=== PATIENT | male | born 1955 | race Caucasian/White ===

== ENCOUNTER 2021-08-01 17:21 | Observation (INO) | payer OTHER ==
[2021-08-01 18:22] LABS: Absolute Lymphocytes (CBC) 1.6 K/uL (0.7-4.9); Hematocrit 42.7 % (39.6-49.0); MPV 8.4 fL (7.6-11.3); RBC Red Blood Cell Count 4.81 M/uL (4.33-5.43)
--- NOTE | 2021-08-01 18:28 | RAD REPORT ---
EXAM DESCRIPTION: CT - Ct Stroke Brain Wo Cont - 08/01/2021 6:18 pm CLINICAL HISTORY: Sided weakness ;Confused COMPARISON: <Comparisons> TECHNIQUE: All CT scans are performed using dose optimization technique as appropriate and may inclu de automated exposure control or mA/KV adjustment according to patient size. FINDINGS: No intracranial hemorrhage, hydrocephalus or extra-axial fluid collection.Mild chronic sma ll vessel ischemic changes. The paranasal sinuses and mastoids are clear. The calvarium is intact. IMPRESSION: No acute intracranial abnormality. Discussed with Dr. Ceja by Dr. Sanchez at 1824 on 08/01/21
[2021-08-01] MEDS ORDERED: FAMOTIDINE 20 MG/2 ML VIAL IV ONE ×2 (18:44→18:52)
[2021-08-01] MEDS ORDERED: NA CHLORIDE 0.9% 0 ML ONE (18:44)
[2021-08-01 18:45] LABS: Urine Blood Negative (Negative); Urine Glucose Negative (Negative); Urine Protein Negative (Negative); Urine Specific Gravity 1.015 (1.005-1.030)
--- NOTE | 2021-08-01 18:48 | RAD REPORT ---
EXAM DESCRIPTION: RAD - Chest Single View - 08/01/2021 6:26 pm CLINICAL HISTORY: Possible CVA COMPARISON: No comparisonsNo comparisons FINDINGS: Lines: None. Lungs: No evidence of edema or pneumonia. Pleural: No significant pleural effusions or pneumothorax. Cardiac: The heart size is within normal limits. Bones: No acute fractures. Other: IMPRESSION: No acute cardiopulmonary disease.
[2021-08-01] MEDS ORDERED: NA CHLORIDE 0.9% 500 ML ONE (18:51)
[2021-08-01 19:13] LABS: Barbiturates NEGATIVE (NEGATIVE); Benzodiazepines NEGATIVE (NEGATIVE); Cocaine NEGATIVE (NEGATIVE); METHAMPHETAM NEGATIVE (NEGATIVE); Methadone NEGATIVE (NEGATIVE); Opiates NEGATIVE (NEGATIVE); Phencyclidine NEGATIVE (NEGATIVE); THC Cannibis NEGATIVE (NEGATIVE)
[2021-08-01 19:15] LABS: SARS-COV-2 RT PCR NEGATIVE (NEGATIVE)
[2021-08-01 19:19] LABS: Protime INR 1.02
[2021-08-01] MEDS ORDERED: NA CHLORIDE 0.9% 50 ML ONE (19:22)
[2021-08-01] MEDS ORDERED: ASPIRIN 81 MG CHEWABLE TABLET ONE (19:22)
[2021-08-01] MEDS ORDERED: FOLIC ACID 5 MG/ML VIAL ONE (19:22)
[2021-08-01 19:59] LABS: Potassium 3.8 mmol/L (3.5-5.1)
--- NOTE | 2021-08-01 20:58 | RAD REPORT ---
EXAM DESCRIPTION: CT - Head angio - 08/01/2021 8:34 pm CLINICAL HISTORY: Dizziness;Weakness COMPARISON: Ct Stroke Brain Wo Cont dated 08/01/2021 TECHNIQUE: CT angiography of the head was performed with MIPs. All CT scans are performed using dose optimization technique as appropriate and may include automated exposure control or mA/KV adjustment according to patient size. 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 No hemodynamically significant s tenosis. No arteriovenous malformation identified. Hypoplastic left A1 with infundibulum. ICA calcifi cations. Posterior circulation: No aneurysm or large vessel occlusion. No hemodynamically significant stenosis. No arteriovenous malf ormation identified. IMPRESSION: No significant flow abnormality is detected. 3 mm ACOM aneurysm.
--- NOTE | 2021-08-01 21:13 | ER ---
Nurse's Notes [facility] Name: Gonzalez Verduzco Age: 66 yrs Sex: Male : 1955 Arrival Date: 08/01/2021 Time: 17:22 Bed 6 Private MD: Diagnosis: Paresthesia of skin;Weakness;Cerebral infarction, unspecified Presentation: 08/01 17:22 Chief complaint: Patient states: pt presented to ED reporting dizziness. Coronavirus vazquez screen: Vaccine status: Patient reports being unvaccinated. Ebola Screen: Patient denies travel to an Ebola-affected area in the 21 days before illness onset. Initial Sepsis Screen: Does the patient meet any 2 criteria? No. Patient's initial sepsis screen is negative. Does the patient have a suspected source of infection? No. Patient's initial sepsis screen is negative. Risk Assessment: Do you want to hurt yourself or someone else? Patient reports no desire to harm self or others. Onset of symptoms was August 01, 2021. 17:22 Method Of Arrival: EMS: [facility] vazquez 17:22 Acuity: JIGAR 3 vazquez Triage Assessment: 17:23 General: Appears in no apparent distress. Behavior is calm, cooperative. Pain: Denies vazquez pain. Neuro: Reports dizziness. Cardiovascular: Reports lightheadedness. Historical: - Allergies: 17:23 No Known Allergies; vazquez - PMHx: 17:23 None; vazquez - PSHx: 17:23 None; vazquez - Immunization history:: Adult Immunizations up to date. - Social history:: Smoking status: Patient denies any tobacco usage or history of. Screenin:25 Abuse screen: Denies threats or abuse. Denies injuries from another. Nutritional vazquez screening: No deficits noted. Tuberculosis screening: No symptoms or risk factors identified. Fall Risk IV access (20 points). 19:14 The patient has not been NPO before screening. The patient is currently on the as6 following diet: regular The patient is alert, able to follow commands. The patient does not exhibit slurred or garbled speech The patient is not exhibiting difficulty speaking. The patient does not exhibit difficulty understanding words. The patient is able to swallow own secretions with no drooling or need for suction. Patient tolerated one teaspoon of water. No drooling, immediate coughing, gurgling, or clearing of the throat was noted. The patient tolerated 90mL of water. No drooling, immediate coughing, gurgling, or clearing of the throat was noted. The patient passed the bedside swallow screening. Oral medications may be given as ordered. Contact Physician for further diet orders. Provider notified of bedside swallow screening results: Michele Vincent MD. Assessment: 17:26 Reassessment: pt reported dizziness that started about 3 hours ago. General: Appears in vazquez no apparent distress. Behavior is calm, cooperative. Pain: Denies pain. Neuro: Reports dizziness. Cardiovascular: Reports lightheadedness. 18:07 Neuro: Oriented to person, place, time, situation, Stile Ripsaw Operator are equal bilaterally Moves vazquez all extremities. Gait is Speech is normal, Facial symmetry appears normal, Pupils are PERRLA, Pupil Size: 3mm Intact Babinski is negative. 19:12 Pain: Denies pain. Neuro: Reports numbness in right arm. as6 20:28 General: pt taken to CT. as6 21:14 General: pt states symptoms have improved, pt now denies numbness to right arm. "I feel as6 totally normal now". 22:28 General: NIHSS - 0. Musculoskeletal: No deficits noted. tw5 22:28 Neuro: Level of Consciousness is awake, alert, obeys commands, Oriented to person, tw5 place, time, situation, Moves all extremities. Full function. Vital Signs: 17:15 BP 183 / 91; Pulse 91; Resp 15 S; Pulse Ox 98% on R/A; jg9 17:22 BP 183 / 91; Pulse 97; Resp 18; Temp 98.7(O); Pulse Ox 98% on R/A; Weight 113.4 kg; vazquez Height 5 ft. 8 in. (172.72 cm); 17:45 BP 160 / 84; Pulse 86; Resp 14; Pulse Ox 95% on R/A; jg9 19:13 BP 152 / 83; Pulse 89; Resp 14 S; Pulse Ox 99% on R/A; as6 20:27 BP 139 / 93; Pulse 84; Resp 14 S; Pulse Ox 98% on R/A; as6 21:14 BP 158 / 93; Pulse 82; Resp 14 S; Pulse Ox 97% on R/A; as6 22:28 BP 154 / 76; Pulse 82; Resp 18; Pulse Ox 96% on R/A; tw5 17:22 Body Mass Index 38.01 (113.40 kg, 172.72 cm) vazquez Lopez Coma Score: 18:06 Eye Response: spontaneous(4). Verbal Response: oriented(5). Motor Response: obeys vazquez commands(6). Total: 15. NIH Stroke Scale Scores: 18:12 NIHSS Score: 1 kdr ED Course: 17:22 Patient arrived in ED. vazquez 17:23 Triage completed. vazquez 17:23 Arm band placed on. vazquez 17:25 Patient has correct armband on for positive identification. Bed in low position. vazquez 17:25 No provider procedures requiring assistance completed. Maintain EMS IV. Dressing vazquez intact. Gauge \\T\\ site: 20g RAC. 17:58 Otto Ceja MD is Attending Physician. kdr 18:16 CT Stroke Brain w/o Contrast In Process Unspecified. EDMS 18:26 Stroke CXR 1 View In Process Unspecified. EDMS 18:45 Urine Drug Screen Sent. vazquez 18:45 Alcohol Serum/Plasma Sent. vazquez 18:45 UDS Sent. vazquez 18:45 ETOH Level Sent. vazquez 19:01 Shruthi Pham is Primary Nurse. tw5 19:01 Drew Lawson RN is Primary Nurse. as6 19:11 Attending Physician role handed off by Otto Ceja MD rn 19:11 Michele Vincent MD is Attending Physician. rn 20:34 CT Head Angio In Process Unspecified. EDMS 21:11 Nelson Wiseman MD is Hospitalizing Provider. rn 21:21 Ge Urbano is Hospitalizing Provider. rn 22:29 Patient admitted, IV remains in place. tw5 Administered Medications: 18:44 Drug: Pepcid (famotidine) 20 mg Route: IVP; Site: right antecubital; jg9 18:51 Follow up: Response: No adverse reaction vazquez 18:45 Drug: NS 0.9% 500 ml Route: IV; Rate: bolus; Site: right antecubital; jg9 21:16 Follow up: Response: No adverse reaction; IV Status: Completed infusion; IV Intake: as6 500ml 19:24 Drug: Aspirin Chewable Tablet 324 mg Route: PO; as6 21:16 Follow up: Response: No adverse reaction as6 19:24 Drug: foLIC Acid 1 mg Route: IVPB; Site: right antecubital; as6 21:16 Follow up: Response: No adverse reaction; IV Status: Completed infusion; IV Intake: [id number] Intake: 21:16 IV: 500ml; Total: 500ml. as6 21:16 IV: 50ml; Total: 550ml. as6 Outcome: 21:12 Decision to Hospitalize by Provider. rn 22:24 Admitted to Med/surg Report called to Attempted to give report. tw5 22:29 Admitted to Med/surg via wheelchair, room 223, with chart, Report called to Karrie tw5 22:29 Condition: improved 22:32 Patient left the ED. tw5 NIH Stroke Scale - NIH Stroke Score Date: 08/01/2021 Time: 18:12 Total Score = 1 1a. Level of Consciousness (LOC) - 0(Alert) 1b. Level of Consciousness (LOC) (Month \\T\\ Age) - 0(Both) 1c. LOC Commands (Open \\T\\ Closes Eyes/8Th Grade Mathematics Teacher) - 0(Both) 2. Best Gaze (Lateral Gaze Paresis) - 0(Normal) 3. Visual Field Loss - 0(No visual loss) 4. Facial Palsy - 0(Normal) 5a. Left Arm: Motor (10-second hold) - 0(No drift) 5b. Right Arm: Motor (10-second hold) - 0(No drift) 6a. Left Leg: Motor (5-second hold - always test supine) - 0(No drift) 6b. Right Leg: Motor (5-second hold - always test supine) - 0(No drift) 7. Limb Ataxia (finger/nose \\T\\ heel/frost - test with eyes open) - 1(Present in one limb) 8. Sensory Loss (pinprick arms/legs/face) - 0(Normal) 9. Best Language: Aphasia (description/naming/reading) - 0(No aphasia) 10. Dysarthria (speech clarity - read or repeat words) - 0(Normal) 11. Extinction and Inattention (visual/tactile/auditory/spatial/personal) - 0(No abnormality) Initials: kdr Signatures: Dispatcher [employer] EDMS Otto Ceja MD MD kdr Micheel Vincent MD MD rn Wood, Tiffany tw5 Drew Lawson RN RN as6 Brenda Riggs RN RN jg9 Madison Cannon, RN RN vazquez
--- NOTE | 2021-08-01 21:13 | EDPHYS ---
Physician Documentation [facility] Name: Gonzalez Verduzco Age: 66 yrs Sex: Male : 1955 Arrival Date: 08/01/2021 Time: 17:22 Bed 6 Private MD: ED Physician Michele Vincent HPI: 08/01 18:12 This 66 yrs old Male presents to ER via EMS with complaints of Weakness and confusion. kdr 18:12 Patient reports that sometime this afternoon he began to feel poorly. Is unclear kdr exactly when the symptoms started. He states that he was by himself. He states that he called EMS to come get him because he did not feel right. Patient denies these similar symptoms before. He has no current focal complaints other than he does not feel right and weakness on the right side. Onset: The symptoms/episode began/occurred at an unknown time. Severity of symptoms: At their worst the symptoms were mild in the emergency department the symptoms are unchanged. The patient has not experienced similar symptoms in the past. The patient has not recently seen a physician. Historical: - Allergies: 17:23 No Known Allergies; vazquez - PMHx: 17:23 None; vazquez - PSHx: 17:23 None; vazquez - Immunization history:: Adult Immunizations up to date. - Social history:: Smoking status: Patient denies any tobacco usage or history of. ROS: 18:12 Constitutional: Negative for fever, chills, and weight loss, Eyes: Negative for injury, kdr pain, redness, and discharge, ENT: Negative for injury, pain, and discharge, Neck: Negative for injury, pain, and swelling, Cardiovascular: Negative for chest pain, palpitations, and edema, Respiratory: Negative for shortness of breath, cough, wheezing, and pleuritic chest pain, Abdomen/GI: Negative for abdominal pain, nausea, vomiting, diarrhea, and constipation, Back: Negative for injury and pain, : Negative for injury, bleeding, discharge, and swelling, MS/Extremity: Negative for injury and deformity, Skin: Negative for injury, rash, and discoloration, Psych: Negative for depression, anxiety, suicide ideation, homicidal ideation, and hallucinations, Allergy/Immunology: Negative for hives, rash, and allergies, Endocrine: Negative for neck swelling, polydipsia, polyuria, polyphagia, and marked weight changes, Hematologic/Lymphatic: Negative for swollen nodes, abnormal bleeding, and unusual bruising. 18:12 Neuro: Positive for altered mental status, weakness, Primarily right-sided weakness but very minimal. Exam: 18:12 Constitutional: This is a well developed, well nourished patient who is awake, alert, kdr and in no acute distress. Head/Face: Normocephalic, atraumatic. Eyes: Pupils equal round and reactive to light, extra-ocular motions intact. Lids and lashes normal. Conjunctiva and sclera are non-icteric and not injected. Cornea within normal limits. Periorbital areas with no swelling, redness, or edema. Neck: Trachea midline, no thyromegaly or masses palpated, and no cervical lymphadenopathy. Supple, full range of motion without nuchal rigidity, or vertebral point tenderness. No Meningismus. Chest/axilla: Normal chest wall appearance and motion. Nontender with no deformity. No lesions are appreciated. Cardiovascular: Regular rate and rhythm with a normal S1 and S2. No gallops, murmurs, or rubs. Normal PMI, no JVD. No pulse deficits. Respiratory: Lungs have equal breath sounds bilaterally, clear to auscultation and percussion. No rales, rhonchi or wheezes noted. No increased work of breathing, no retractions or nasal flaring. Abdomen/GI: Soft, non-tender, with normal bowel sounds. No distension or tympany. No guarding or rebound. No evidence of tenderness throughout. Back: No spinal tenderness. No costovertebral tenderness. Full range of motion. Skin: Warm, dry with normal turgor. Normal color with no rashes, no lesions, and no evidence of cellulitis. MS/ Extremity: Pulses equal, no cyanosis. Neurovascular intact. Full, normal range of motion. Neuro: Awake and alert, GCS 15, oriented to person, place, time, and situation. Cranial nerves II-XII grossly intact. Motor strength 5/5 in all extremities. Sensory grossly intact. Cerebellar exam normal. Normal gait. Psych: Awake, alert, with orientation to person, place and time. Behavior, mood, and affect are within normal limits. Vital Signs: 17:15 BP 183 / 91; Pulse 91; Resp 15 S; Pulse Ox 98% on R/A; jg9 17:22 BP 183 / 91; Pulse 97; Resp 18; Temp 98.7(O); Pulse Ox 98% on R/A; Weight 113.4 kg; vazquez Height 5 ft. 8 in. (172.72 cm); 17:45 BP 160 / 84; Pulse 86; Resp 14; Pulse Ox 95% on R/A; jg9 19:13 BP 152 / 83; Pulse 89; Resp 14 S; Pulse Ox 99% on R/A; as6 20:27 BP 139 / 93; Pulse 84; Resp 14 S; Pulse Ox 98% on R/A; as6 21:14 BP 158 / 93; Pulse 82; Resp 14 S; Pulse Ox 97% on R/A; as6 22:28 BP 154 / 76; Pulse 82; Resp 18; Pulse Ox 96% on R/A; tw5 17:22 Body Mass Index 38.01 (113.40 kg, 172.72 cm) vazquez NIH Stroke Scale Scores: 18:12 NIHSS Score: 1 kdr Lopez Coma Score: 18:06 Eye Response: spontaneous(4). Verbal Response: oriented(5). Motor Response: obeys vazquez commands(6). Total: 15. MDM: 18:12 Data reviewed: lab test result(s), radiologic studies. Counseling: I had a detailed kdr discussion with the patient and/or guardian regarding: the historical points, exam findings, and any diagnostic results supporting the discharge/admit diagnosis, lab results, radiology results. 19:12 Patient medically screened. rn 19:12 ED course: Signed out to me at shift change by Dr. Ceja. Patient evaluated by me at rn shift change, reporting right sided numbness and tingling, + RUE weakness. Not worse but not improving. Pt reports woke up feeling fine and sometime between noon and 2pm felt dizzy and "pins and needles" on right side. Does not take medication. CT head without contrast neg for acute finding. Per sign out, patient outside of TPA window. Will obtain CTA to check for LVO. Aspirin ordered. . 21:10 Differential Diagnosis CVA, metabolic disorder, TIA. Response to treatment: There is no rn appreciated change of the patient's symptoms at this time. ED course: Consulted with Dr. Torres regarding incidental ACOM aneurysm, states doesn't explain symptoms, ok to admit here for medical management of possible ischemic CVA.. 08/01 18:02 Order name: COVID-19/FLU A+B (Document "Date of Onset" if Symptomatic); Complete Time: vazquez 20:11 08/01 18:09 Order name: Basic Metabolic Panel; Complete Time: 20:11 [facility] 08/01 18:09 Order name: CBC with Diff; Complete Time: 19:02 [facility] 08/01 18:09 Order name: Protime (+inr); Complete Time: 20:11 [facility] 08/01 18:09 Order name: Ptt, Activated; Complete Time: 20:11 [facility] 08/01 18:11 Order name: ETOH Level [facility] 08/01 18:09 Order name: CT Stroke Brain w/o Contrast; Complete Time: 19:02 [facility] 08/01 18:09 Order name: Stroke CXR 1 View; Complete Time: 19:02 [facility] 08/01 18:11 Order name: UDS [facility] 08/01 18:12 Order name: Alcohol Serum/Plasma; Complete Time: 20:11 [facility] 08/01 18:12 Order name: Urine Drug Screen; Complete Time: 19:14 [facility] 08/01 18:45 Order name: Urine Dipstick-Ancillary; Complete Time: 19:02 [facility]IN 08/01 19:03 Order name: CT Head Angio; Complete Time: 21:00 08/01 18:09 Order name: EKG; Complete Time: 18:09 [facility] 08/01 18:09 Order name: Cardiac monitoring; Complete Time: 18:38 [facility] 08/01 18:09 Order name: EKG - Nurse/Tech; Complete Time: 18:38 [facility] 08/01 18:09 Order name: IV Saline Lock; Complete Time: 18:38 [facility] 08/01 18:09 Order name: Labs collected and sent; Complete Time: 18:38 [facility] 08/01 18:09 Order name: NPO; Complete Time: 18:38 [facility] 08/01 18:09 Order name: O2 Per Protocol; Complete Time: 18:38 [facility] 08/01 18:09 Order name: O2 Sat Monitoring; Complete Time: 18:38 [facility] 08/01 18:09 Order name: Stroke Swallow Screen; Complete Time: 19:15 kdr Administered Medications: 18:44 Drug: Pepcid (famotidine) 20 mg Route: IVP; Site: right antecubital; jg9 18:51 Follow up: Response: No adverse reaction vazquez 18:45 Drug: NS 0.9% 500 ml Route: IV; Rate: bolus; Site: right antecubital; jg9 21:16 Follow up: Response: No adverse reaction; IV Status: Completed infusion; IV Intake: as6 500ml 19:24 Drug: Aspirin Chewable Tablet 324 mg Route: PO; as6 21:16 Follow up: Response: No adverse reaction as6 19:24 Drug: foLIC Acid 1 mg Route: IVPB; Site: right antecubital; as6 21:16 Follow up: Response: No adverse reaction; IV Status: Completed infusion; IV Intake: [id number] Disposition Summary: 08/01/21 21:12 Hospitalization Ordered Hospitalization Status: Observation rn Location: Telemetry/MedSur (observation) rn Condition: Stable rn Problem: new rn Symptoms: are unchanged rn Bed/Room Type: Standard rn Provider: Ge Urbano(08/01/21 21:21) rn Room Assignment: [facility](08/01/21 22:19) Diagnosis - Paresthesia of skin rn - Weakness rn - Cerebral infarction, unspecified rn Forms: - Medication Reconciliation Form rn - SBAR form rn NIH Stroke Scale - NIH Stroke Score Date: 08/01/2021 Time: 18:12 Total Score = 1 1a. Level of Consciousness (LOC) - 0(Alert) 1b. Level of Consciousness (LOC) (Month \\T\\ Age) - 0(Both) 1c. LOC Commands (Open \\T\\ Closes Eyes/Frame Carver Spindle) - 0(Both) 2. Best Gaze (Lateral Gaze Paresis) - 0(Normal) 3. Visual Field Loss - 0(No visual loss) 4. Facial Palsy - 0(Normal) 5a. Left Arm: Motor (10-second hold) - 0(No drift) 5b. Right Arm: Motor (10-second hold) - 0(No drift) 6a. Left Leg: Motor (5-second hold - always test supine) - 0(No drift) 6b. Right Leg: Motor (5-second hold - always test supine) - 0(No drift) 7. Limb Ataxia (finger/nose \\T\\ heel/frost - test with eyes open) - 1(Present in one limb) 8. Sensory Loss (pinprick arms/legs/face) - 0(Normal) 9. Best Language: Aphasia (description/naming/reading) - 0(No aphasia) 10. Dysarthria (speech clarity - read or repeat words) - 0(Normal) 11. Extinction and Inattention (visual/tactile/auditory/spatial/personal) - 0(No abnormality) Initials: kdr Signatures: Dispatcher [employer] EDMS Malissa Bills RN RN Otto Sifuentes MD MD kdr Nieto, Roman, MD MD rn Slawson, Ashby, RN RN as6 Brenda Riggs RN RN jg9 Madison Cannon RN RN ha Brown, Sophia, YAMILKA PA sb3 Corrections: (The following items were deleted from the chart) 18:39 18:09 John ordered. bonilla jg9 21:21 21:12 Nelson Wiseman rn rn 22:19 21:12 mariano bernal
--- NOTE | 2021-08-01 22:06 | P.HP ---
Certification for Inpatient Patient admitted to: Observation With expected LOS: <2 Midnights Patient will require the following post-hospital care: None Practitioner: I am a practitioner with admitting privileges, knowledge of patient current condition, hospital course, and medical plan of care. Services: Services provided to patient in accordance with Admission requirements found in Title 42 Section 412.3 of the Code of Federal Regulations Patient History Date of Service: 08/01/21 Primary Care Provider: None Reason for admission: Stroke R/O History of Present Illness: Patient is a 66-year-old male with no past medical history who presented to the ED after experiencing confusion and weakness. He reports that he began to feel poorly this afternoon but is unclear when exactly the symptoms started. He states he was home alone and started lose sensation throughout his left arm and leg so he called EMS. Patient reports that these symptoms have now resolved and he has not experienced anything like this in the past. He does not have a primary care doctor or a aviation electrical technician. He denies any medical history or taking any medications on a daily basis. Labs significant for glucose 187 and a calcium 8.1. Head CTA showed no significant flow abnormality but did find an incidental [address] Torres has been consulted and wishes for the patient to be admitted by the hospitalist team for medical management with him consulting. Allergies No Known Allergies Allergy (Unverified 08/01/21 22:32) Home medications list reviewed: Yes (NA) - Past Medical/Surgical History Past Medical History: Patient denies medical history -: Appendectomy Psychosocial/ Personal History: Patient is retired and lives at home by himself. - Family History Mother -: Cancer - Social History Smoking Status: Never smoker Alcohol use: No CD- Drugs: No Place of Residence: Home Review of Systems 10-point ROS is otherwise unremarkable Physical Examination - Physical Exam General: Alert, In no apparent distress, Oriented x3, Obese HEENT: Atraumatic, PERRLA, Mucous membr. moist/pink, EOMI, Sclerae nonicteric Neck: Supple, 2+ carotid pulse no bruit, No LAD, Without JVD or thyroid abnormality Respiratory: Clear to auscultation bilaterally, Normal air movement Cardiovascular: Regular rate/rhythm, Normal S1 S2 Gastrointestinal: Normal bowel sounds, No tenderness Musculoskeletal: No tenderness Integumentary: No rashes Neurological: Normal speech, Normal strength at 5/5 x4 extr, Normal tone, Sensation intact, Normal affect - Studies Laboratory Data (last 24 hrs) 08/01/21 19:04: PT 11.7, INR 1.02, APTT 30.0 08/01/21 19:04: Sodium 138, Potassium 3.8, BUN 16, Creatinine 0.89, Glucose 187 H 08/01/21 18:00: WBC 7.10, Hgb 14.5, Hct 42.7, Plt Count 204 Assessment and Plan - Problems (Diagnosis) (1) CVA (cerebral vascular accident) Current Visit: Yes Status: Acute Qualifiers: CVA mechanism: unspecified Qualified Code(s): I63.9 - Cerebral infarction, unspecified (2) Aneurysm of anterior communicating artery Current Visit: Yes Status: Acute (3) Weakness Current Visit: Yes Status: Resolved (4) Paresthesia Current Visit: Yes Status: Resolved - Plan -Patient's neurologic symptoms have resolved. Patient's neuro exam was normal and he is oriented x3 -Patient was given 324 mg of aspirin and 1 mg of folic acid in the ED -We will start patient on atorvastatin 40, Plavix 75, and continue aspirin and folic acid -Stroke protocol MRI, echo, and carotid US ordered for the morning -Dr. Torres consulting -We will monitor on telemetry overnight DVT PPx: lovenox Code: Full Discharge Plan: Home Plan to discharge in: 24 Hours - Advance Directives Does patient have a Living Will: No Does patient have a Durable POA for Healthcare: No - Code Status/Comfort Care Code Status Assessed: Yes (Full) Critical Care: No Time Spent Managing Pts Care (In Minutes): 70
[2021-08-01] MEDS ORDERED: ONDANSETRON 4 MG/2 ML VIAL IV PRN (22:33)
[2021-08-01] MEDS ORDERED: ACETAMINOPHEN 500 MG TAB PO PRN (22:33)
[2021-08-01 22:51] VITALS: BMI 37.8
[2021-08-01 23:42] VITALS: O2SAT 96
[2021-08-02] MEDS ORDERED: MELATONIN 5 MG TABLET PO PRN (01:11)
[2021-08-02 05:42] LABS: Absolute Lymphocytes (CBC) 1.8 K/uL (0.7-4.9); Hematocrit 39.6 % (39.6-49.0); Lymphocytes % 20.9 % (15.3-44.8); MPV 6.9 fL (7.6-11.3); RBC Red Blood Cell Count 4.59 M/uL (4.33-5.43)
[2021-08-02 06:10] LABS: Albumin 3.9 g/dL (3.4-5.0); Bilirubin Total 0.5 mg/dL (0.2-1.0); Potassium 4.1 mmol/L (3.5-5.1); Protein, Total 7.7 g/dL (6.4-8.2); Thyroid Stimulating Hormone 3.37 uIU/mL (0.360-3.740)
--- NOTE | 2021-08-02 08:06 | RAD REPORT ---
EXAM DESCRIPTION: USCarotid Artery Bilateral08/02/2021 1:10 am CLINICAL HISTORY: Right arm weakness COMPARISON: None FINDINGS: The velocity of the right internal carotid artery equals 64 cm/sec. The right ICA/CCA rati o 1 The velocity of the left internal carotid artery equals 61 cm/sec. The left ICA/CCA ratio 0.6 Mild plaque is present within the carotid arteries. The vertebral arteries demonstrate antegrade flow IMPRESSION: Mild plaque within the carotid arteries without evidence of a hemodynamically significan t stenosis NASCET criteria used. Mild 0-49% stenosis Moderate 50-69% stenosis Severe 70-99% stenosis
[2021-08-02] MEDS ORDERED: CLOPIDOGREL 75 MG TABLET PO SCH (09:00)
[2021-08-02] MEDS ORDERED: ENOXAPARIN 40 MG/0.4 ML SQ SCH (09:00)
[2021-08-02] MEDS ORDERED: LORazepam 2 MG/ML VIAL IV PRN (09:02)
[2021-08-02] MEDS ORDERED: HYDRALAZINE HCL 20 MG/ML VIAL IV PRN (14:41)
[2021-08-02 16:44] VITALS: BP 152/81; TEMP 97.8
--- NOTE | 2021-08-02 17:50 | RAD REPORT ---
EXAM DESCRIPTION: MRI - Brain W/Wo Cont - 08/02/2021 5:10 pm CLINICAL HISTORY: left sided weakness COMPARISON: MRA Head Wo Cont dated 08/02/2021; Head angio dated 08/01/2021 TECHNIQUE: Sagittal T1-weighted images were obtained along with PD/heavily T2-weighted and T2-FLAIR images. Axial DWI and ADC mapping sequences were also obtained along with coronal heavily T2-weighted images were obtained. Post contrast enhanced images were obtained. FINDINGS: Acute infarct present medially new within the left temporal lobe with other punctate foci in the left basal ganglia. No extra-axial fluid collections. Moderate chronic small vessel ischemic changes. No abnormal enhancement. No mastoid effusion.Paranasal sinuses are clear. IMPRESSION: Left medial temporal lobe acute infarct and small focus of infarct in the left thalamus. Moderate chronic small vessel ischemic changes.
--- NOTE | 2021-08-02 17:51 | RAD REPORT ---
EXAM DESCRIPTION: MRI - MRA Head Wo Cont - 08/02/2021 5:10 pm CLINICAL HISTORY: left sided weakness CVA COMPARISON: No comparisons FINDINGS: 3D noncontrast [id number] MR angiography of the [place] was performed. Short-segment occlusion at the left P2 segment of the posterior cerebral artery. Bilateral type posterior cerebral arteries are present. The middle cerebral arteries and anterior cerebral arteries are patent. 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 The basilar artery is patent. 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 IMPRESSION: Short-segment occlusion of the left P2 segment of the posterior cerebral artery.
--- NOTE | 2021-08-02 17:53 | RAD REPORT ---
EXAM DESCRIPTION: MRI - MRA Neck W/Wo Cont - 08/02/2021 5:09 pm CLINICAL HISTORY: left sided weakness COMPARISON: Carotid Artery Bilateral dated 08/01/2021 FINDINGS: Contrast enhance 2D [id number] MR angiography of the neck vessels was performed. The bilateral carotid systems and vertebral arteries are widely patent. No dissection is identified. Three vessel aortic arch. IMPRESSION: No flow limiting stenosis is present within the neck.
--- NOTE | 2021-08-02 17:58 | P.DS ---
Admission Date: 08/01/21 Discharge Date: 08/02/21 Primary Care Provider: None Disposition: ROUTINE DISCHARGE Discharge Condition: FAIR Reason for Admission: Stroke R/O Brief History of Present Illness: Patient is a 66-year-old male with no past medical history who presented to the ED after experiencing confusion and weakness. He states he was home alone and started lose sensation throughout his left arm and leg so he called EMS. Patient reports that these symptoms have now resolved and he has not experienced anything like this in the past. 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 He denies any medical history or taking any medications on a daily basis. Labs significant for glucose 187 and a calcium 8.1. Head CTA showed no significant flow abnormality but did find an incidental [address] Torres has been consulted and patient admitted for further management. Hospital Course: Patient admitted to the medical floor for stroke work-up. He had no neurologic symptoms during the hospital stay. MRI of the brain demonstrated acute CVA in the left temporal lobe and the left thalamus. 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 MRA of the head did not comment on any aneurysm but reported short segment occlusion in the left P2 segment of the posterior cerebral artery. Case discussed with neurology Dr. Torres who saw and evaluated patient. Dr. Torres recommended medical management with aspirin Plavix and statins and follow-up with him in the office. Patient noted to be hypertensive. He is prescribed amlodipine for blood pressure control. Vital Signs/Physical Exam: Temp Pulse Resp BP Pulse Ox 97.8 F 78 20 152/81 H 97 08/02/21 16:00 08/02/21 16:00 08/02/21 16:00 08/02/21 16:00 08/02/21 16:00 General: Alert, In no apparent distress, Oriented x3 HEENT: Atraumatic, Normocephalic, PERRLA, Mucous membr. moist/pink, EOMI, Sclerae nonicteric Neck: Supple, JVD not distended Respiratory: Clear to auscultation bilaterally, Normal air movement Cardiovascular: No edema, Regular rate/rhythm, Normal S1 S2, No murmurs Gastrointestinal: Normal bowel sounds, Soft and benign, Non-distended, No tenderness Musculoskeletal: No swelling, No tenderness Integumentary: No rashes, No cyanosis Neurological: Normal speech, Normal strength at 5/5 x4 extr, Cranial nerves 3-12 intact Laboratory Data at Discharge: WBC 8.60 K/uL (4.3-10.9) D 08/02/21 05:18 Hgb 13.8 g/dL (13.6-17.9) 08/02/21 05:18 Hct 39.6 % (39.6-49.0) 08/02/21 05:18 Plt Count 209 K/uL (152-406) 08/02/21 05:18 PT 11.7 SECONDS (9.5-12.5) 08/01/21 19:04 INR 1.02 08/01/21 19:04 APTT 30.0 SECONDS (24.3-36.9) 08/01/21 19:04 Sodium 136 mmol/L (136-145) 08/02/21 05:18 Potassium 4.1 mmol/L (3.5-5.1) 08/02/21 05:18 BUN 14 mg/dL (7-18) 08/02/21 05:18 Creatinine 0.88 mg/dL (0.55-1.3) 08/02/21 05:18 Glucose 102 mg/dL (74-106) 08/02/21 05:18 Total Bilirubin 0.5 mg/dL (0.2-1.0) 08/02/21 05:18 AST 26 U/L (15-37) 08/02/21 05:18 ALT 44 U/L (12-78) 08/02/21 05:18 Alkaline Phosphatase 83 U/L (45-117) 08/02/21 05:18 Triglycerides 396 mg/dL (<150) H 08/02/21 05:18 Cholesterol 301 mg/dL (<200) H 08/02/21 05:18 HDL Cholesterol 34 mg/dL (40-60) L 08/02/21 05:18 Cholesterol/HDL Ratio 8.85 08/02/21 05:18 Home Medications: Amlodipine [Norvasc*] 10 mg PO DAILY #30 tab 08/02/21 Atorvastatin Calcium [Lipitor] 40 mg PO BEDTIME #30 tab 08/02/21 New Medications: Atorvastatin Calcium [Lipitor] 40 mg PO BEDTIME #30 tab Amlodipine [Norvasc*] 10 mg PO DAILY #30 tab Followup: NONE,NONE [Primary Care Provider] -
--- NOTE | 2021-08-02 19:11 | CON ---
Reason For Consultation: Consultation called because of possible stroke. History Of Present Illness: Mr. Verduzco is a 66-year-old right-handed patient with no sign ificant past medical history who comes to [facility] on yesterday, 08/01/2021, with left arm , leg numbness and weakness that began sometime in the afternoon, but he could not place more specifi c time on onset of his symptoms. His arrival time in the emergency room was at 5:[address] scan was done at 6:18 a.m. and study showed no acute ischemic or hemorrhagic change. At the time tere t study was done, the patient's symptoms had largely resolved completely and NIH Stroke Scale at that time was 0. At most, around 2 would be the NIH stroke scale given the facial numbness, but on my ev aluation, the patient actually is 0 on a stroke scale. Subsequent workup includes CT angiogram of th e head that showed no significant flow abnormalities. His carotid artery ultrasound showed no eviden ce of hemodynamically significant stenosis. Blood work revealed a normal complete blood count with d ifferential, normal coagulation panel. Blood sugars initially were 187/102. His LDL cholesterol chip vated at 188, HDL 34, total cholesterol 301, triglycerides 396. His cholesterol to HDL ratio was miguel angel y elevated at 8.85. Urinalysis negative. COVID-19 test negative. Drug tox screen is negative. Past Medical History: As noted, the patient denies significant past medical history. Past Surgical History: Appendectomy. Social History: The patient is retired. Lives alone. No alcohol, tobacco, or IV drug use. Family History: Cancer in mother. Review of Systems: He denies any recent fevers, chills, nausea, vomiting, myalgias, arthralgias, headache, weight change , rash, psychiatric complaints. He denies having COVID-19 infection and completely refuses to have a COVID-19 vaccine. Physical Examination: Vital Signs: Blood pressure 163/73, pulse 84, respiratory rate 18, temperature 98.3, and oxygen satu ration 98%. Weight 249 pounds, height 5 feet, BMI 37.9. General: Mr. Verduzco is lying in bed, in no acute distress. HEENT: He is normocephalic, atraumatic. Sclerae anicteric. Oropharynx is pink and moist. Neck: Supple. Chest: Clear. Heart: Regular. Extremities: Show no clubbing, cyanosis, or edema. Neurological: Cranial nerves 2 through 12 intact. Motor in upper and lower extremities intact, prox imally and distally 5/5. Sensation intact in upper and lower extremities, proximally and distally. Coordination is intact in upper or lower extremities. Gait, good stance stride. Assessment: Mr. Verduzco is a 66-year-old patient with possible transient ischemic attack. This stud y believes he may have had a similar episode some years back that resolved very quickly or is unclear . He does have possibly diabetes mellitus, hypertension, and significant dyslipidemia. Plan: 1.Aspirin 81 mg daily, Plavix 75 mg daily, folic acid 1 mg daily, high dose statin, currently Lipito r 40 mg at bedtime. 2.The patient was instructed on how to modify his diet and exercise along with hydration to further reduce stroke risk. 3.After discharge once his brain MRI is done, he may follow up with Dr. Torres in 1 month. ASHWINI/SHANELLE Voice ID: [id number] Report ID: [id number]
[2021-08-02] MEDS ORDERED: ATORVASTATIN 40 MG TAB PO SCH (21:00)
--- NOTE | 2021-08-05 07:02 | ECHO ---
HEIGHT: 5 ft 8 in WEIGHT: 249 lb 0 oz DATE OF STUDY: 08/02/[address]: Tere Armenta 2-DIMENSIONAL: YES M.MODE: YES DOPPLER: YES COLOR FLOW: YES TDS: NO PORTABLE: NO DEFINITY: NO BUBBLE STUDY: NO DIAGNOSIS: STROKE CARDIAC HISTORY: CATHERIZATION: SURGERY: PROSTHETIC VALVE: PACEMAKER: MEASUREMENTS (cm) DIASTOLIC (NORMALS) SYSTOLIC (NORMALS) IVSd 1.0 (0.6-1.2) LA Diam 3.4 (1.9-4.0) LVEF 59% LVIDd 3.6 (3.5-5.7) LVIDs 2.5 (2.0-3.5) %FS 31% LVPWd 1.0 (0.6-1.2) Ao Diam 3.0 (2.0-3.7) 2 DIMENSIONAL ASSESSMENT: RIGHT ATRIUM: NORMAL LEFT ATRIUM: NORMAL RIGHT VENTRICLE: NORMAL LEFT VENTRICLE: NORMAL TRICUSPID VALVE: NORMAL MITRAL VALVE: NORMAL PULMONIC VALVE: NORMAL AORTIC VALVE: NORMAL PERICARDIAL EFFUSION: NONE AORTIC ROOT: NORMAL LEFT VENTRICULAR WALL MOTION: NORMAL DOPPLER/COLOR FLOW: NORMAL COMMENTS: NORMAL LEFT VENTRICULAR 55-60%. NORMAL WALL MOTION. TECHNOLOGIST: Nahun BOONE
== END 2021-08-02 20:15 | disposition home or self-care (01) ==
LOC: ER 17:21 → ERHOLD 21:56 → 2ND 22:24
PROVIDERS: ADMIT Internal Medicine; ATTEND Internal Medicine
DX: I63.9 Cerebral infarction, unspecified (principal); G83.24 Monoplegia of upper limb affecting left nondominant side; I67.1 Cerebral aneurysm, nonruptured; I10 Essential (primary) hypertension; Z20.822 Contact with and (suspected) exposure to COVID-19
CPT/HCPCS: 96365; 96361; 93306; 85025 ×2; 80048; 36415; 80320; 85610; 80061; 85730; 84443; 81003; 84439; 80053; 0240U; 80307; 70496; 70450; 71045; 93880; 70553; 70544; 70549; 96375; 99285; 96366; Q9967; A9577; J1650; J7040; G0378 ×3